=== PATIENT | female | born 1985 | race Caucasian/White ===

== ENCOUNTER 2017-09-14 15:14 | Inpatient (IN) | payer MEDICAID ==
[2017-09-14] MEDS ORDERED: METHYLERGONOVINE 0.2 MG INJ IM ×2 (16:00→19:00)
[2017-09-14] MEDS ORDERED: OXYTOCIN 30 UNITS/LR 500 ML IV ×4 (16:00→19:00)
[2017-09-14] MEDS ORDERED: CARBOPROST 250 MCG INJ IM ×2 (16:00→19:00)
[2017-09-14] MEDS ORDERED: MISOPROSTOL 200 MCG TAB PR ×2 (16:00→19:00)
[2017-09-14] MEDS: LACTATED RINGER'S 1,000 ML IV ×2 (16:15→17:12)
[2017-09-14 16:19] LABS: ADD MAN DIFF? NO
[2017-09-14 16:23] LABS: BASOPHILS % 0.2 % (0.0-2.0); EOSINOPHILS # 0.1 10^3/ul (0.0-0.5); EOSINOPHILS % 1.3 % (0.0-7.0); HEMATOCRIT 38.4 % (37.0-47.0); HEMOGLOBIN 12.8 g/dl (12.0-16.0); LYMPHOCYTES # 1.9 10^3/ul (0.8-2.9); LYMPHOCYTES % 20.6 % (15.0-51.0); MEAN CORPUSCULAR HEMOGLOBIN 28.5 pg (29.0-33.0); MEAN CORPUSCULAR HGB CONC 33.3 g/dl (32.0-37.0); MEAN CORPUSCULAR VOLUME 85.5 fl (82.0-101.0); MEAN PLATELET VOLUME 11.3 fl (7.4-10.4); MONOCYTE # 0.6 10^3/ul (0.3-0.9); NEUTROPHIL # 6.3 10^3/ul (1.6-7.5); NEUTROPHILS % 69.5 % (39.0-77.0); PLATELET COUNT 186 10^3/UL (140-415); RED BLOOD COUNT 4.49 10^6/ul (4.20-5.40); RED CELL DISTRIBUTION WIDTH 12.9 % (11.5-14.5)
[2017-09-14 16:23] LABS: WHITE BLOOD COUNT 9.1 10^3/ul (4.8-10.8)
[2017-09-14] MEDS: CITRIC ACID/SODIUM CITRATE 15 ML CUP PO (16:50)
[2017-09-14] MEDS ORDERED: METOCLOPRAMIDE 10 MG INJ (16:57)
[2017-09-14] MEDS ORDERED: KETOROLAC 30 MG INJ (16:57)
[2017-09-14] MEDS ORDERED: ONDANSETRON 4 MG INJ (16:57)
[2017-09-14] MEDS ORDERED: morphine SULFATE/PF (10 MG/10 ML) INJ (16:57)
[2017-09-14 16:59] LABS: INR 0.91; PARTIAL THROMBOPLASTIN TIME 26.4 Sec (25.0-35.0); PROTIME 12.3 Sec (11.9-14.9)
[2017-09-14] MEDS ORDERED: BUPIVACAINE 0.75%/DEXT (SPINAL) 2 ML INJ (17:17)
[2017-09-14] MEDS ORDERED: PHENYLephrine (100 MCG/ML) 5ML SYG (17:28)
[2017-09-14] MEDS ORDERED: morphine (1 MG/ML) 10ML SYRINGE IV ×3 (18:00)
[2017-09-14] MEDS ORDERED: ONDANSETRON 4 MG INJ IV ×2 (18:00→20:30)
[2017-09-14] MEDS: OXYTOCIN 30 UNITS/LR 500 ML IV ×2 (18:37→20:56)
[2017-09-14] MEDS: CEFAZOLIN 2 GM/50 ML (PMX) 50 ML IV (18:56)
[2017-09-14] MEDS ORDERED: DEXTROSE 5%-LR 1,000 ML IV (18:58)
[2017-09-14] MEDS: OXYCODONE/ACETAMINOPHEN (5/325) TAB PO (19:00)
[2017-09-14] MEDS ORDERED: METHYLERGONOVINE 0.2 MG TAB PO (19:00)
[2017-09-14] MEDS ORDERED: morphine 2 MG INJ IV ×3 (20:30)
[2017-09-14] MEDS ORDERED: DIPHENHYDRAMINE 50 MG INJ IV (20:30)
[2017-09-14] MEDS ORDERED: NALOXONE (0.4 MG/ML) INJ IV (20:30)
[2017-09-14 20:55] LABS: RAPID PLASMA REAGIN NONREACTIVE (NR)
[2017-09-14] MEDS: SENNA/DOCUSATE NA (8.6MG/50MG) TAB PO (21:00)
[2017-09-15] MEDS: OXYCODONE/ACETAMINOPHEN (5/325) TAB PO ×3 (03:00→18:42)
[2017-09-15] MEDS: LACTATED RINGER'S 1,000 ML IV ×2 (06:57→15:21)
[2017-09-15 08:39] LABS: ADD MAN DIFF? NO
[2017-09-15 08:46] LABS: WHITE BLOOD COUNT 13.4 10^3/ul (4.8-10.8)
[2017-09-15 08:46] LABS: BASOPHILS % 0.2 % (0.0-2.0); EOSINOPHILS # 0.1 10^3/ul (0.0-0.5); EOSINOPHILS % 0.4 % (0.0-7.0); HEMOGLOBIN 11.3 g/dl (12.0-16.0); LYMPHOCYTES # 1.6 10^3/ul (0.8-2.9); LYMPHOCYTES % 11.6 % (15.0-51.0); MEAN CORPUSCULAR HEMOGLOBIN 28.2 pg (29.0-33.0); MEAN CORPUSCULAR HGB CONC 33.2 g/dl (32.0-37.0); MEAN CORPUSCULAR VOLUME 84.8 fl (82.0-101.0); MEAN PLATELET VOLUME 11.5 fl (7.4-10.4); MONOCYTE # 0.9 10^3/ul (0.3-0.9); MONOCYTES % 6.8 % (0.0-11.0); NEUTROPHIL # 10.7 10^3/ul (1.6-7.5); NEUTROPHILS % 80.1 % (39.0-77.0); PLATELET COUNT 174 10^3/UL (140-415); RED BLOOD COUNT 4.01 10^6/ul (4.20-5.40); RED CELL DISTRIBUTION WIDTH 12.7 % (11.5-14.5)
[2017-09-15] MEDS: SENNA/DOCUSATE NA (8.6MG/50MG) TAB PO ×2 (09:00→21:36)
[2017-09-15] MEDS: KETOROLAC 30 MG INJ IV ×2 (10:08→17:25)
[2017-09-15] MEDS: MAGNESIUM HYDROXIDE 30ML CUP PO (18:43)
[2017-09-15] MEDS: IBUPROFEN 800 MG TAB PO (21:36)
[2017-09-16] MEDS: OXYCODONE/ACETAMINOPHEN (5/325) TAB PO ×4 (03:00→23:54)
[2017-09-16] MEDS: IBUPROFEN 800 MG TAB PO ×3 (05:50→21:31)
[2017-09-16] MEDS: SENNA/DOCUSATE NA (8.6MG/50MG) TAB PO ×2 (09:14→21:31)
[2017-09-16] MEDS: LANOLIN 7 GM TUBE TOP (09:14)
[2017-09-17] MEDS: OXYCODONE/ACETAMINOPHEN (5/325) TAB PO ×2 (03:00→09:21)
[2017-09-17] MEDS: IBUPROFEN 800 MG TAB PO (05:38)
[2017-09-17] MEDS: MEASLES,MUMPS,RUBELLA VACCINE INJ SC* (09:21)
[2017-09-17] MEDS: SENNA/DOCUSATE NA (8.6MG/50MG) TAB PO (09:21)
[2017-09-17] MEDS: DIPHTH/TET/ACEL PERTUSS (ADULT) 0.5 ML VIAL IM* (10:44)
== END 2017-09-17 13:48 | disposition home or self-care (01) | DRG 766 ==
LOC: L-D 15:14 → PP1 21:32
PROVIDERS: Obstetrics & Gynecology
PROC: 10D00Z1 Extraction of Products of Conception, Low, Open Approach (ICD-10-PCS; principal; 2017-09-14 10:30)
DX: O34.219 Maternal care for unspecified type scar from previous cesarean delivery (principal); Z3A.39 39 weeks gestation of pregnancy; Z37.0 Single live birth
CPT/HCPCS: 85025; 85610; 85730; 86592; 86850; 86900; 86901; 99464